=== PATIENT | female | born 1960 | race Caucasian/White ===

== ENCOUNTER 2025-01-02 02:26 | Emergency (ER) | payer MEDICARE, OTHER, SELFPAY ==
[2025-01-02 02:38] VITALS: BMI 26.7
[2025-01-02 02:43] VITALS: BP 141/83
[2025-01-02 03:00] VITALS: BP 126/63
[2025-01-02 03:01] LABS: Hematocrit 35.6 % (37.0-47.0); Hemoglobin 11.5 g/dL (12.0-16.0); Mean Corp Hgb Conc. 32.3 g/dL (33.0-37.0); Mean Corpuscular Volume 90.1 fL (81.0-99.0); Nucleated Red Blood Cells % 0 %; Platelet Count 209 10^3/uL (130-400); Red Cell Dist. Width 13.4 % (11.5-14.5)
[2025-01-02 03:13] LABS: INR 0.98; PT 13.2 Sec (11.4-14.6)
[2025-01-02 03:15] LABS: ALT (SGPT) 19 U/L (0-35); AST (SGOT) 27 U/L (14-36); Albumin 4.2 g/dl (3.5-5.0); Alkaline Phosphatase 65 U/L (38-126); Blood Urea Nitrogen 31 mg/dl (7-17); Calcium 9.9 mg/dl (8.4-10.2); Carbon Dioxide 26 mmol/L (22-30); Chloride 107 mmol/L (98-107); Estimated Creatinine Clearance 73 ml/min; Glucose 104 mg/dl (70-99); Magnesium 2.1 mg/dl (1.6-2.3); Potassium 3.7 mmol/L (3.5-5.1); Sodium 138 mmol/L (135-145); Total Protein 6.5 g/dl (6.3-8.2); eGFR > 60.00
[2025-01-02 03:28] LABS: Troponin I < 0.012 ng/ml
[2025-01-02 04:00] VITALS: BP 117/74
--- NOTE | 2025-01-02 04:17 | ED.GENMED ---
History of Present Illness
General
Chief Complaint: Heart Rate Problem
Source: patient and spouse
Time Seen by Provider: 01/02/25 03:30
Nursing documentation reviewed up to this point in time: agreed with
History of Present Illness
History of Present Illness:
Note:
CHIEF COMPLAINT(S)
Palpitations and light-headedness.
HISTORY OF PRESENT ILLNESS
The patient is a 64-year-old female who presented with complaints of palpitations, describing the sensation as her 'heart felt like it was taking a walk on its own and really just all over the place.' She experienced these symptoms while getting up
and walking around, accompanied by light-headedness. The patient attempted self-remedies including applying pressure to her chest and drinking cold water. She reports a similar episode during the COVID- pandemic. The patient denies current chest
pain or discomfort but expresses concern due to her prior experience of atrial fibrillation.
PAST MEDICAL AND SURIGICAL HISTORY
The patient reported having mitral valve prolapse.
CHRONIC MEDICAL CONDITIONS SIGNIFICANTLY AFFECTING CARE
Mitral valve prolapse is significant to the patients care and medical history.
SOCIAL HISTORY
The patient mentioned taking fish oil regularly, which might imply a health-conscious lifestyle.
MEDICATIONS
The patient regularly takes fish oil.
PHYSICAL EXAM
General: Alert, no acute distress.
Skin: Warm, dry.
Head: Normocephalic, atraumatic.
Neck: Supple, trachea midline.
Eyes, Ears, Nose, and Mouth and Throat: Oral mucosa moist.
Cardiovascular: Normal peripheral perfusion, No edema.
Respiratory: Respirations are non-labored.
Gastrointestinal: Abdomen nondistended
Back: Normal range of motion, Normal alignment.
Musculoskeletal: Normal range of motion, normal strength.
Neurological: Alert and oriented to person, place, time, and situation. No focal neurological deficit observed.
Psychiatric: Cooperative, appropriate mood and affect.
PLAN
The plan is to monitor the patient for now and consider if blood thinners are necessary. Follow-up with her refiner operator, Dr. Boyle, is advised.
DIFFERENTIAL DIAGNOSIS
The Differential Diagnosis includes, in no particular order and is not limited to:
1. Atrial fibrillation
2. Mitral valve prolapse complications
3. Paroxysmal supraventricular tachycardia
4. Hyperthyroidism
5. Anxiety-related palpitations
6. Electrolyte imbalance
7. Anemia
8. Medication side effects
9. Pulmonary embolism
10. Coronary artery disease
Disposition:
SUMMARY OF ENCOUNTER
The patient, a 64-year-old female, presented with palpitations and light-headedness described as her heart feeling uncontrolled. She experienced an episode similar to atrial fibrillation in the past, for which she was concerned. No acute symptoms
observed during her period in the emergency department. Due to her history and presentation, it was decided to discharge her with improvement and guidance to follow up with her refiner operator.
DISPOSITION
Discharge
ASSESSMENT
Potential paroxysmal atrial fibrillation given the symptoms and patients history of mitral valve prolapse.
PLAN
Monitor the patients symptoms and ensure follow-up with her refiner operator, Dr. Boyle, for further evaluation of her cardiac condition.
PATIENT EDUCATION AND COUNSELING
The patient was advised on recognizing symptoms of recurrent arrhythmia and the importance of seeking prompt medical attention if symptoms recur. The necessity of follow-up with her refiner operator for further management and evaluation of the need for
anticoagulation therapy was emphasized.
FOLLOW-UP INSTRUCTIONS
The patient is advised to follow up with her refiner operator, Dr. Boyle, for ongoing management and evaluation of her cardiovascular health.
MEDICAL DECISION MAKING
-Complexity of Data Reviewed: Chronic conditions affecting care include mitral valve prolapse. Differential diagnoses considered include atrial fibrillation, complications from mitral valve prolapse, paroxysmal supraventricular tachycardia,
hyperthyroidism, anxiety, electrolyte imbalance, anemia, medication side effects, pulmonary embolism, and coronary artery disease.
-Risk: Prescription drug management and therapy monitoring were considerations, given her history of atrial fibrillation and potential need for anticoagulation. However, the patient is stable for outpatient management, with follow-up arranged for
further evaluation by her refiner operator.
DIAGNOSIS
- Paroxysmal Atrial Fibrillation, ICD-10 Code: I48.0
Phy Exam
Physical Exam
Physical Exam:
.
Scores
[id number] Score for Afib Stroke Risk
Age in Years (65=0, 65-74=1, >/=75=2): 65-74
Sex (Female=+1): Female
Congestive Heart Failure History (Yes=+1): No
Hypertension History (Yes=+1): Yes
Stroke/TIA/Thromboembolism History (Yes=+2): No
Vascular Disease History (Yes=+1): No
Diabetes Mellitus (Yes=+1): No
Score: 3
Anticoagulation Recommendations: Recommend anticoagulation (as validated in nonvalvular fib)
Course
Orders/Labs/Results
Orders:
Orders
01/02/25 02:28
ECG [Electrocardiogram (*1)] Urgent
Reason for Study: Bradycardia / Tachycardia
EKG- Treatment ONCE
01/02/25 02:51
Cardiac Monitoring- Treatment ONCE
01/02/25 02:54
Complete Blood Count/With Diff Urgent
Comprehensive Metabolic Panel Urgent
Magnesium Urgent
Prothrombin Time Urgent
Troponin I Urgent
01/02/25 03:14
Electrocardiogram (*1) Urgent
Reason for Study: Palpitations
Other Reason for Exam: repeat ECG
EKG- Treatment ONCE
01/02/25 04:21
Rivaroxaban [Xarelto] 15 mg PO NOW STA
Abnormal Lab Results
01/02/25
02:54
RBC 3.95 L 10^6/uL
(4.20-5.40)
Hgb 11.5 L g/dL
(12.0-16.0)
Hct 35.6 L %
(37.0-47.0)
MCHC 32.3 L g/dL
(33.0-37.0)
BUN 31 H mg/dl
(7-17)
Glucose 104 H mg/dl
(70-99)
01/02/25 02:54
01/02/25 02:54
Vital Signs
Initial and Last Documented VS:
Initial Vital Signs
Temp Pulse Resp BP Pulse Ox
98.6 F 101 16 141/83 100
01/02/25 02:43 01/02/25 02:43 01/02/25 02:43 01/02/25 02:43 01/02/25 02:43
Last Documented Vital Signs
Temp Pulse Resp BP Pulse Ox
98.6 F 75 17 108/65 94
01/02/25 02:43 01/02/25 05:30 01/02/25 05:30 01/02/25 05:00 01/02/25 05:15
*Pulse Oximetry
SaO2: 92
Oxygen Mode of Delivery: Room air
Patient hypoxic: no
*Critical Care Note
Total Time (30-74mins, 75-104mins- exclusive of procedures): Not Applicable
ED Attending Note
-
Portions of this chart may have been created with voice recognition software.� Occasional wrong word or��sound alike� substitutions may have occurred due to the inherent limitations of voice recognition software.
Discharge Plan
Departure
Patient Disposition: Home (Routine Discharge)
Date of Disposition: 01/02/25
Time of Disposition: 04:21
Patient with high blood pressure during this ER visit?: Yes
Discharge Problem:
AF (paroxysmal atrial fibrillation)
Instructions: Atrial Fibrillation (DC), BLOOD PRESSURE
Prescriptions:
New
Xarelto 15 mg tablet
15 mg PO QPM Qty: 15 0RF
No Action
alprazolam 0.5 mg Tablet
0.5 mg PO HS PRN (Reason: sleep)
zolpidem 10 mg Tablet
10 mg PO HS PRN (Reason: sleep)
valsartan 40 mg Tablet
40 mg PO DAILY
Referrals:
Clau Pemberton DO [Family Provider, Family Practice]
Activity Restrictions/Additional Instructions:
Thank You for choosing [facility].
It was a pleasure meeting you and taking part in your care. We hope for your continued healing and wellness.
Please read discharge instructions in their entirety. However, they are for general education and may not describe your exact diagnosis at discharge. Information on your ER visit and medical conditions were discussed with you along with appropriate
follow up information...
If indicated, please take your medications as instructed and indicated on discharge paperwork.
Please schedule a follow up appointment as directed. Call to schedule an appointment
Please return to the emergency department with ANY change in, persisting, or worsening of symptoms. If any of your symptoms do not improve, or persist, or become more severe within 6-12 hours, please return to the emergency department for further
care.
Please return to the emergency department if you develop a headache, neck pain/stiffness, fever greater than 100.4F, chest pain, shortness of breath, persistent nausea, vomiting, slurred speech, difficulty walking, numbness/tingling, weakness, signs
of infection or any other symptoms that are worrisome to you.
If you have any questions or concerns please do not hesitate to call the Hospital at .
Interventions
Interventions:
*Risk Screen - Suicide Last Done: 01/02/25 02:38
*General Assessment Last Done: 01/02/25 03:05
*Neglect/Abuse Screening Last Done: 01/02/25 02:38
*ED- Fall Risk Assessment Last Done: 01/02/25 03:05
*ED COVID-19 Vaccine History Last Done: 01/02/25 03:05
*ED Influenza Vaccine History Last Done: 01/02/25 03:05
*Nursing Disposition Last Done: 01/02/25 05:50
ED- Cardiac Assessment Last Done: 01/02/25 03:08
ED- Pulmonary Assessment Last Done: 01/02/25 03:08
Discharge Date and Time
Discharge Date/Time: 01/02/25 05:50
Print Language: TELUGU
[2025-01-02 05:00] VITALS: BP 108/65
[2025-01-02] MEDS: XARELTO 15 MG PO (05:42)
== END 2025-01-02 05:50 | disposition home or self-care (01) ==
LOC: EMR 02:26
PROVIDERS: EMERGENCY PHYSICIAN Student in an Organized Health Care Education/Training Program; FAMILY PHYSICIAN Family Medicine
DX: I48.0 Paroxysmal atrial fibrillation (principal); I34.1 Nonrheumatic mitral (valve) prolapse; Z79.01 Long term (current) use of anticoagulants
CPT/HCPCS: 99284; 80053; 83735; 84484; 85025; 85610; 93005